=== PATIENT | female | born 1960 | race Caucasian/White ===

== ENCOUNTER → 2025-04-29 10:56 | Outpatient (REF) | payer OTHER, SELFPAY | LOC: HWWDC 10:56 | PROVIDERS: ATTENDING PHYSICIAN Family Medicine; FAMILY PHYSICIAN Family Medicine | DX: Z12.31 Encounter for screening mammogram for malignant neoplasm of breast (principal) | CPT/HCPCS: 77063; 77067 ==

== ENCOUNTER → 2025-06-04 07:30 | Outpatient (REF) | payer OTHER, SELFPAY | LOC: HWRAD 07:30 | PROVIDERS: ATTENDING PHYSICIAN Family Medicine | DX: Z13.820 Encounter for screening for osteoporosis (principal) | CPT/HCPCS: 77080 ==